=== PATIENT | female | born 1990 | race Two or more races ===

== ENCOUNTER 2019-02-16 09:06 | Emergency (ER) | payer OTHER ==
[~2019-02-16] VITALS: Ht 152.4 cm; Wt 63.7 kg
[2019-02-16] MEDS ORDERED: IBUP200C25 PO (09:13)
[2019-02-16] MEDS ORDERED: ADDE15CA3 PO (09:13)
[2019-02-16 09:57] LABS: BASO % 0.4 % (0.0-1.0); EOS # 0.1 10^3/uL (0.0-0.50); HEMATOCRIT 42.8 % (36.0-47.0); LYMPH # 1.5 10^3/uL (1.5-6.5); LYMPH % 29.6 % (24.0-44.0); MEAN CORPUSCULAR HEMOGLOBIN 30.4 pg (27.0-33.0); MEAN CORPUSCULAR VOLUME 86.8 fl (80.0-96.0); MONO # 0.3 10^3/uL (0.0-0.8); MONO % 5.5 % (0.0-5.0); NEUTROPHILS # 3.3 10^3/uL (1.8-7.7); NEUTROPHILS % 63.3 % (36.0-66.0); PLATELET COUNT, AUTOMATED 232 10^3/uL (150-450); RED BLOOD COUNT 4.93 10^6/uL (4.00-5.40); WHITE BLOOD COUNT 5.1 10^3/uL (4.0-10.0)
[2019-02-16 10:41] LABS: BLOOD UREA NITROGEN 12 MG/DL (7-18); CALCIUM LEVEL 8.6 MG/DL (8.5-10.1); CARBON DIOXIDE LEVEL 24 MEQ/L (21-32); CHLORIDE LEVEL 108 MEQ/L (98-107); CREATININE FOR GFR 0.82 MG/DL (0.55-1.30); GLOMERULAR FILTRATION RATE > 60.0 (>60); GLUCOSE, FASTING 98 MG/DL (70-100); HCG, SERUM QUANTITATIVE < 1.0 MIU/ML; POTASSIUM SERUM 4.3 MEQ/L (3.5-5.1); SODIUM LEVEL 139 MEQ/L (136-145)
[2019-02-16] MEDS ORDERED: NS 1,000 ML IV ONE (10:45)
[2019-02-16] MEDS ORDERED: KETOROLAC 30 MG/ML VIAL (J1885) IV ONE ×2 (10:45→11:00)
[2019-02-16] MEDS ORDERED: ONDANSETRON 4MG/2ML VIAL (J2405) IV ONE ×2 (10:45→11:00)
--- NOTE | 2019-02-16 11:58 | REP ---
CT ABDOMEN AND PELVIS WITHOUT CONTRAST: CT abdomen and pelvis were performed without oral or IV contrast. Sagittal and coronal reconstruction images are performed. Visualized lung bases demonstrate no infiltrate. The liver, spleen, adrenals, pancreas, and right kidney are grossly unremarkable. A punctate calcification is seen in the lower pole of the left kidney. There is no ureteral calculus bilaterally and no evidence of hydroureteronephrosis. There is no abdominal aortic aneurysm. No gross adenopathy is seen. There is no free air. No bowel wall thickening is seen. There is no evidence of appendicitis. IUD is seen in the uterus. There trace free fluid in the pelvis likely physiologic. Urinary bladder is mildly distended and grossly unremarkable. IMPRESSION: Punctate calcification in the lower pole of the left kidney. No ureteral or bladder calculus identified and no evidence of hydroureteronephrosis. No evidence of appendicitis. IUD is seen in the uterus. There is trace free fluid in the pelvis, which is likely physiologic in nature. Electronically Signed by Yohannes Downing MD 02/16/2019 11:44 P
[2019-02-16] MEDS ORDERED: KETO10TAB PO (12:00)
[2019-02-16 12:21] VITALS: BP 115/81
== END 2019-02-16 12:22 | disposition home or self-care (01) ==
LOC: M ED 09:06
DX: R10.12 Left upper quadrant pain (principal); R10.32 Left lower quadrant pain; R31.9 Hematuria, unspecified; Z97.5 Presence of (intrauterine) contraceptive device; Z87.440 Personal history of urinary (tract) infections; F17.200 Nicotine dependence, unspecified, uncomplicated; Z79.899 Other long term (current) drug therapy; Z79.1 Long term (current) use of non-steroidal anti-inflammatories (NSAID)
CPT/HCPCS: 74176; 80048; 81001; 84702; 85025; 96374; 96375; 99284; J1885; J2405

== ENCOUNTER → 2019-08-11 | Outpatient (CLI) | payer OTHER ==
[~2019-08-11] MED LIST: ADDE15CA3 PO; IBUP200C25 PO; KETO10TAB PO; PROHANCE 279.3MG/ML 15ML VIAL (A9576) As Ordered ONE
--- NOTE | 2019-08-11 13:32 | REP ---
MRI PELVIS WITHOUT AND WITH IV CONTRAST: HISTORY: Left lower quadrant pain. Status post prior and umbilical hernia repair. Area of tenderness and pain to the left and inferior of the umbilicus. Positive sonography. MRI CONTRAST DOSE: 13 mL of intravenous ProHance. MR TECHNIQUE: Axial, coronal, and sagittal T1- and T2-weighted scans are obtained with and without fat saturation. Pre- and postcontrast imaging is included. MRI FINDINGS: Cortical and medullary bone signal intensity are normal in the visualized bony pelvis and proximal femurs. There is no evidence of significant pelvic fluid. The uterus is somewhat retroflexed measuring 9.7 cm in craniocaudal span by 4.7 cm anteroposterior by 5.7 cm right to left. There is an intrauterine device in good position in the uterine endometrium. No focal uterine mass lesion is observed. Urinary bladder raymundo are smooth. The ovaries are somewhat high in the pelvis bilaterally showing normal follicles. No ovarian mass lesion is visible. No pelvic adenopathy is seen. There is some hypertrophy and low T1- low T2-signal intensity sclerosis at the symphysis pubis consistent with osteitis condensans pubis. Mild posterior spurring is seen at the symphysis. No inguinal mass or adenopathy is seen. Postcontrast images demonstrate enhancement in an intramural 2.1 cm posterior uterine fibroid just to the left of midline. No other abnormal gadolinium enhancement is appreciated with an the pelvis. IMPRESSION: 1. Mildly elongate retroverted uterus containing an IUD. Small posterior uterine leiomyoma. 2. Normal ovaries. 3. Findings consistent with osteitis condensans pubis. 4. Otherwise, unremarkable MRI study of the pelvis without and with IV contrast. Electronically Signed by Dane Tavera MD 08/11/2019 02:49 P
--- NOTE | 2019-08-11 13:37 | REP ---
MRI ABDOMEN WITHOUT AND WITH IV CONTRAST: HISTORY: Left lower quadrant pain. Patient status post prior C-sections times two and umbilical hernia repair. 1-year duration of superficial abdominal pain and tenderness lateral and inferior to the umbilicus. A 3.3 cm hypoechoic mass visible in the musculature of the abdominal wall by ultrasound. TECHNIQUE: Axial, coronal imaging planes are utilized. T1- and T2-weighted scans are obtained with and without fat saturation. Postcontrast imaging is acquired. 13 mL of intravenous ProHance is administered. MRI FINDINGS: There is subtle abnormality of the anterior abdominal wall musculature to the left of midline below the umbilicus. There is slightly heterogeneous, predominantly low T2, intermediate to low T1-signal intensity nodule along the medial border of the rectus abdominis muscle in this location. On T2-weighted scans and in-and-out of phase images, there are some T2 hyperintense cystic or vascular components along its lateral margin. Postcontrast images show heterogeneous contrast enhancement in this lesion. It is most conspicuous on contrast enhanced images and measures 3.2 cm in craniocaudal span by 1.7 cm right to left by 1.2 cm anterior to posterior. IMPRESSION: There is a heterogeneously enhancing mass in the medial aspect of the rectus abdominis muscle on the left below the level of the umbilicus. 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 Electronically Signed by Dane Tavera MD 08/11/2019 02:50 P
== END ==
LOC: M RAD 08:53
PROVIDERS: ATTEND Emergency Medicine
DX: N85.4 Malposition of uterus (principal); D25.9 Leiomyoma of uterus, unspecified; R10.32 Left lower quadrant pain; Z97.5 Presence of (intrauterine) contraceptive device
CPT/HCPCS: 72197; 74183; A9576

== ENCOUNTER → 2020-03-08 | Outpatient (REF) | payer OTHER ==
[~2020-03-08] MED LIST changes: -PROHANCE 279.3MG/ML 15ML VIAL (A9576) As Ordered ONE
[2020-04-18 11:14] LABS: CHLAMYDIA DNA AMPLIFICATION NEGATIVE (NEGATIVE); GC DNA AMPLIFICATION NEGATIVE (NEGATIVE)
== END ==
LOC: M SFHCLUC 10:27
PROVIDERS: ATTEND Physician Assistant
DX: R10.2 Pelvic and perineal pain (principal)
CPT/HCPCS: 81002; 81025; 87086; 87661; G0463

== ENCOUNTER 2020-12-07 06:05 | Observation (INO) | payer OTHER ==
[~2020-12-07] VITALS: Ht 152.4 cm; Wt 69.3 kg
[2020-12-07] VITALS (7 sets, daily range): BP systolic 109–117; BP diastolic 74–78
[~2020-12-07 06:05] MED LIST changes: +APPLTAB3 PO; +LIDO1PAD TD; +LR 1,000 ML IV ONE; +MIRE1IUD IU; +ceFAZolin SOD 1 GM in D5W MINI-BAG PLUS 50 ML IV ONE
[2020-12-07] MEDS ORDERED: BUPIVACAINE LIPOSOME/PF 1.3% 20ML VIAL (13.3MG/ML)(EXPAREL)(C9290 PER1MG) As Ordered ONE (07:09)
[2020-12-07] MEDS ORDERED: LIDOCAINE 2% 100MG/5ML SDV (FOR ANES.) As Ordered ONE (07:10)
[2020-12-07] MEDS ORDERED: BACITRACIN PWD 50,000 UNITS VIAL As Ordered ONE (07:10)
[2020-12-07] MEDS ORDERED: propofoL 200 MG/20 ML VIAL As Ordered ONE (07:10)
[2020-12-07] MEDS ORDERED: ROCURONIUM BROMIDE 50 MG/5 ML VIAL As Ordered ONE ×2 (07:10→08:22)
[2020-12-07] MEDS ORDERED: MIDAZOLAM INJ 2MG/2ML VIAL (J2250 PER 1MG) As Ordered ONE (07:10)
[2020-12-07] MEDS ORDERED: fentaNYL 250 MCG/5 ML INJECTION (J3010) As Ordered ONE (07:10)
[2020-12-07] MEDS ORDERED: HYDROmorphone HCL 2 MG/ML 1ML VIAL (J1170) As Ordered ONE (08:04)
[2020-12-07] MEDS ORDERED: dexameTHASONE 4 MG/ML 1ML VIAL (J1100 PER 1MG) As Ordered ONE (08:04)
[2020-12-07] MEDS ORDERED: ACETAMINOPHEN 1000MG 100ML IV BTL (OFIRMEV) (J0131 PER 10MG) As Ordered ONE (08:18)
[2020-12-07] MEDS ORDERED: ONDANSETRON 4MG/2ML VIAL As Ordered ONE ×2 (08:22→11:46)
[2020-12-07] MEDS ORDERED: METOCLOPRAMIDE INJ 10MG/2ML VIAL (J2765 PER 1) As Ordered ONE (08:22)
[2020-12-07] MEDS ORDERED: SUGAMMADEX SODIUM 500 MG/5 ML VIAL (BRIDION) As Ordered ONE (08:35)
[2020-12-07] MEDS ORDERED: ceFAZolin 1GM VIAL (J0690 PER 500MG) As Ordered ONE (09:18)
--- NOTE | 2020-12-07 11:34 | POST-OPPD ---
Postoperative Procedure Note Date Of Procedure: December 07, 2020 PREOPERATIVE DIAGNOSIS: Panniculitis. Rectus muscle deformity. POSTOPERATIVE DIAGNOSIS: same FINDINGS: Separation of the rectus muscle. Pannus PROCEDURE: Repair of rectus muscle defect and panniculectomy. SURGEON: Dr He FEED MILL TENDER: Dr Devine ANESTHESIA: general SPECIMENS: pannus 232g ESTIMATED BLOOD LOSS: 50 cc REPLACED: none DRAINS: 10 mm JUSTIN x 2 COMPLICATIONS: none POSTOPERATIVE CONDITION: stable MARCY HE DO December 07, 2020 11:34
--- NOTE | 2020-12-07 11:35 | ROOPDOC ---
[facility] Report Of Operation Report of Operation DATE OF PROCEDURE: 12/07/20 PREOPERATIVE DIAGNOSIS: Panniculitis. Rectus muscle deformity. POSTOPERATIVE DIAGNOSIS: same FINDINGS: Separation of the rectus muscle. Pannus PROCEDURE: Repair of rectus muscle defect and panniculectomy. SURGEON: Dr He SHUFFLE BOARD OPERATOR: Dr Devine ANESTHESIA: general SPECIMENS: pannus 232g ESTIMATED BLOOD LOSS: 50 cc REPLACED: none DRAINS: 10 mm JUSTIN x 2 COMPLICATIONS: none POSTOPERATIVE CONDITION: stable Procedure: This is a 30-year-old female who was evaluated by us for skin excess lower abdomen as well is left rectus muscle mass. Patient is scheduled for removal of left rectus muscle mass by gynecology team and repair of rectus muscle defect in panniculectomy by plastics team. Patient has excessive pannus below the umbilicus. Risks benefits and alternatives discussed with the patient in details. Informed consent confirmed and preoperative holding area. Patient was marked in upright position to include her old incision. She was brought into the operating room, placed in supine position, preoperative antibiotics given, sequential stockings placed in the lower calves, and then general anesthesia is induced. Marin catheter was introduced in the bladder without any difficulties with yellow clear urine present. She was prepped and draped in the usual sterile fashion. Lower abdominal incision was designed 6 cm above the labial crease. Incision carried out with 10 blade. Careful sharp dissection with electrocautery and peek cautery was done until the fascia of rectus muscle is identified. Significant scarring was encountered along the old Pfannenstiel incision and linea Alba. Vessels were identified throughout and either cauterized or suture ligated for hemostasis control. Fascia was completely intact. Dissection carried out until umbilical stump superiorly. Good visualization was achieved for right and left rectus muscles. At this point Dr Devine started his part of the procedure, which is dictated separately. After his part of the procedure was completed and peritoneum was repaired. I examined rectus muscle. There is a 2 cm separation, which was repaired with 2-0 Vycril sutures. Anterior rectus fascia was opened transversely, now was repaired with interrupted 2-0 Vicryl sutures and running 2-0 PDS chris suture. Exparel 10 cc was infiltrated in Rectus muscle for pain ma nagement. Patient placed on placed in the reflex position and excess tissue was measured and scored. Then it was resected using electrocautery. Total weight of the pannus 232 g. Careful hemostasis was assured. The wound is irrigated bacitracin irrigation. Skin flaps were realigned and was started all closure with deep sutures of 0 Vicryl realigning the mons pubis and closing the lower abdominal incision. 3-0 Monocryl V lock suture used for subcutaneous closure followed by 3-0 Monocryl interrupted sutures as well. Two 10 mm Srini-Bello drains were placed throughout lower abdominal incision. Prinio dressing applied to lower abdominal incision and bulky dressing throughout. Abdominal binder applied. Patient extubated in the operating room without any difficulties and transferred to recovery room in stable condition. MARCY HE DO December 07, 2020 11:35
[2020-12-07] MEDS ORDERED: fentaNYL 100 MCG/2 ML INJECTION (J3010) As Ordered ONE (11:46)
[2020-12-07] MEDS ORDERED: ACETAMINOPHEN TAB 650MG DOSE (2X325MG) PO PRN (11:50)
[2020-12-07] MEDS ORDERED: LR 1,000 ML IV SCH (11:50)
[2020-12-07] MEDS ORDERED: ONDANSETRON 4MG/2ML VIAL IV PRN (11:50)
[2020-12-07] MEDS: fentaNYL 100 MCG/2 ML INJECTION (J3010) IV PRN ×4 (11:55→12:53)
[2020-12-07] MEDS: oxyCODONE 5MG TAB PO PRN ×2 (12:44→12:58)
[2020-12-07] MEDS: ONDANSETRON 4MG/2ML VIAL IV PRN ×2 (13:45→17:50)
[2020-12-07] MEDS: LR 1,000 ML IV SCH (13:46)
[2020-12-07] MEDS: MORPHINE 4 MG/ML 1ML VIAL/SYRINGE (J2270) IV PRN ×2 (17:39→18:04)
[2020-12-07] MEDS: ceFAZolin SOD 1 GM in D5W MINI-BAG PLUS 50 ML IV SCH (17:40)
[2020-12-07] MEDS: PERCOCET 5MG/325MG TAB PO PRN (21:35)
[2020-12-08] MEDS: ceFAZolin SOD 1 GM in D5W MINI-BAG PLUS 50 ML IV SCH ×3 (00:38→16:38)
[2020-12-08 02:15] VITALS: BP 114/72
[2020-12-08] MEDS: LR 1,000 ML IV SCH (03:45)
[2020-12-08 05:30] VITALS: BP 116/73
--- NOTE | 2020-12-08 07:15 | IPNPDOC ---
Text Note Date of Service The patient was seen on 12/08/20. NOTE 12/08/20 post op day 1 reviewed surgery with patient as mass is her uterus tacked to left rectus muscle and completely adherent down to bladder. Attempted to reduce adhesions however left cornua of uterus solid into left rectus. recommended that if no pain and issue of uterine conservation then no more surgery is needed. Reviewing past history had 2 c/s and apparently second c/s was the issue. Patient has IUCD in place so at present is not an issue ,but patient wants to have more children. Will certainly need repeat cs, and be prepared for possible more surgery at that time. Presently urine clear, plans are when discharge I will order antibiotics at [facility].Reviewed leg bag with patient and nurse. Patient to arrange appointment with [facility] 10 days for Marin removal and bladder scan. If patient bypasses with urine her catheter call office Expressed understanding 20 minute discussion. As for discharge today or tomorrow is fine at discretion of attending Ijeoma MONTERROSO, I+O Ijeoma MONTERROSO I+O Vital Signs Date Time Temp Pulse Resp B/P (MAP) Pulse Ox O2 Delivery O2 Flow Rate FiO2 12/08/20 02:15 98.0 102 16 114/72 (86) 97 Room Air I&O- Last 24 Hours up to 6 AM 12/08/20 06:00 Intake Total 3995 ml Output Total 1215 ml Balance 2780 ml Chilango Devine MD December 08, 2020 07:15
[2020-12-08] MEDS: PERCOCET 5MG/325MG TAB PO PRN ×4 (08:29→23:59)
--- NOTE | 2020-12-08 13:13 | IPNPDOC ---
Subjective General Date Seen: December 08, 2020 Subject Chief Complaint/History The patient is a 30-year-old female admitted with a reason for visit of Rectus Muscle Mass, Panniculitis. Patient s/p panniculectomy with rectus muscle repair. POD 1. Doing well. Pain controlled. Current Medications Current Medications Current Medications Medications (Trade) Dose Ordered Sig/Richy Route PRN Reason Start Time Stop Time Status Last Admin Dose Admin Acetaminophen (Tylenol Tab) 650 mg Q6H PRN PO MILD PAIN (PS 1-4) 12/07/20 11:50 Cefazolin Sodium 1 gm/Dextrose 50 ml @ 100 mls/hr Q8H IV 12/07/20 16:00 12/08/20 08:29 Fentanyl Citrate (Sublimaze) 25 mcg Q5MP PRN IV PAIN LEVEL 5-10 12/07/20 11:50 12/07/20 12:50 DC 12/07/20 12:53 Lactated Ringer's 1,000 ml @ 75 mls/hr [id number] IV 12/07/20 11:50 12/08/20 03:45 Lactated Ringer's 1,000 ml @ 100 mls/hr Q10H IV 12/07/20 11:50 12/07/20 12:50 DC Morphine Sulfate (Morphine Sulfate Inj) 4 mg Q4HP PRN IV SEVERE PAIN (PS 8-10) 12/07/20 11:50 12/07/20 17:39 Ondansetron HCl (ZOFRAN INJection) 4 mg Q4H PRN IV NAUSEA OR VOMITING 12/07/20 11:50 12/07/20 17:50 Ondansetron HCl (ZOFRAN INJection) 4 mg Q4HP PRN IV NAUSEA OR VOMITING 12/07/20 11:50 12/07/20 12:50 DC 12/07/20 11:54 Oxycodone HCl (Roxicodone, Oxyir) 5 mg ASDIRECTED PRN PO PAIN LEVEL 1-4 12/07/20 11:50 12/07/20 12:50 DC 12/07/20 12:58 Oxycodone/ Acetaminophen (Percocet 5mg/ 325mg Tablet) 2 tab Q4HP PRN PO PAIN LEVEL 4-7 12/07/20 11:50 12/08/20 08:29 Allergies Coded Allergies: No Known Drug Allergies (Verified Allergy, Unknown, 11/26/20) Objective Physical Examination Examination GENERAL APPEARANCE:Patient seen, laying in bed, awake, alert, and oriented. Comfortable, in no acute distress. SKIN: Warm and moist. NECK: Supple, no thyromegaly. No obvious jugular venous distention. LUNGS: Clear to auscultation bilaterally. No wheezing appreciated. HEART: No chest wall abnormalities. Regular rate and rhythm with no murmurs appreciated. ABDOMEN: Abdomen is soft, non-tender, non-distended. Incision intact. Umbilicus viable. JUSTIN drains with serosanguinous drainage. L15, R 25 cc/24hr each drain. EXTREMITIES: No edema identified. No calf tenderness. Vital Signs Vital Signs Date Time Temp Pulse Resp B/P (MAP) Pulse Ox O2 Delivery O2 Flow Rate FiO2 12/08/20 09:00 16 12/08/20 05:30 98.3 83 116/73 (87) 98 Room Air I&Os I&O- Last 24 Hours up to 6 AM 12/08/20 05:59 Intake Total 3995 ml Output Total 1215 ml Balance 2780 ml Impression S/p panniculectomy. Doing well. Continue with Marin per PREPARATION SUPERVISOR FREEZING, can switch to leg bag today. Continue with antibiotics Ambulate. Keep abdominal binder, keep bed flexed. D/c planning tomorrow. Plan / VTE VTE Prophylaxis Ordered?: Yes MARCY HE DO December 08, 2020 13:13
[2020-12-08 14:00] VITALS: BP 103/74
[2020-12-08 22:00] VITALS: BP 109/71
[2020-12-09 06:00] VITALS: BP 109/72
[2020-12-09] MEDS: PERCOCET 5MG/325MG TAB PO PRN ×2 (06:34→12:52)
--- NOTE | 2020-12-09 07:59 | IPNPDOC ---
Subjective General Date Seen: December 09, 2020 Subject Chief Complaint/History The patient is a 30-year-old female admitted with a reason for visit of Rectus Muscle Mass, Panniculitis. Patient s/p panniculectomy POD 2. She got up today and had bilateral numbness and tingling on both legs. No dizziness, headache, SOB, CP. Able to walk. No calf tenderness. After repositioning the binder and position symptoms resolved. Feeling well during exam. Current Medications Current Medications Current Medications Medications (Trade) Dose Ordered Sig/Richy Route PRN Reason Start Time Stop Time Status Last Admin Dose Admin Acetaminophen (Tylenol Tab) 650 mg Q6H PRN PO MILD PAIN (PS 1-4) 12/07/20 11:50 Cefazolin Sodium 1 gm/Dextrose 50 ml @ 100 mls/hr Q8H IV 12/07/20 16:00 12/09/20 00:00 Fentanyl Citrate (Sublimaze) 25 mcg Q5MP PRN IV PAIN LEVEL 5-10 12/07/20 11:50 12/07/20 12:50 DC 12/07/20 12:53 Lactated Ringer's 1,000 ml @ 75 mls/hr [id number] IV 12/07/20 11:50 12/08/20 14:54 DC 12/08/20 03:45 Lactated Ringer's 1,000 ml @ 100 mls/hr Q10H IV 12/07/20 11:50 12/07/20 12:50 DC Morphine Sulfate (Morphine Sulfate Inj) 4 mg Q4HP PRN IV SEVERE PAIN (PS 8-10) 12/07/20 11:50 12/07/20 17:39 Ondansetron HCl (ZOFRAN INJection) 4 mg Q4H PRN IV NAUSEA OR VOMITING 12/07/20 11:50 12/07/20 17:50 Ondansetron HCl (ZOFRAN INJection) 4 mg Q4HP PRN IV NAUSEA OR VOMITING 12/07/20 11:50 12/07/20 12:50 DC 12/07/20 11:54 Oxycodone HCl (Roxicodone, Oxyir) 5 mg ASDIRECTED PRN PO PAIN LEVEL 1-4 12/07/20 11:50 12/07/20 12:50 DC 12/07/20 12:58 Oxycodone/ Acetaminophen (Percocet 5mg/ 325mg Tablet) 2 tab Q4HP PRN PO PAIN LEVEL 4-7 12/07/20 11:50 12/09/20 06:34 Allergies Coded Allergies: No Known Drug Allergies (Verified Allergy, Unknown, 11/26/20) Objective Physical Examination Examination GENERAL APPEARANCE:Patient seen, laying in bed, awake, alert, and oriented. Comfortable, in no acute distress. SKIN: Warm and moist. HEENT: Normocephalic, atraumatic. [place] palpebral conjunctiva, anicteric sclerae. Lips and mucosa appear moist. NECK: Supple, no thyromegaly. No obvious jugular venous distention. LUNGS: Clear to auscultation bilaterally. No wheezing appreciated. HEART: No chest wall abnormalities. Regular rate and rhythm with no murmurs appreciated. ABDOMEN: Abdomen is soft, non-tender, non-distended. Incision intact. JUSTIN drains with serosanguinous drainage. L10, R 15 cc/24hr each drain. EXTREMITIES: No edema identified. No calf tenderness. Tingling and numbness resolved. Vital Signs Vital Signs Date Time Temp Pulse Resp B/P (MAP) Pulse Ox O2 Delivery O2 Flow Rate FiO2 12/09/20 07:31 16 12/09/20 06:00 98.0 91 109/72 (84) 98 Room Air I&Os I&O- Last 24 Hours up to 6 AM 12/09/20 05:59 Intake Total 1300 ml Output Total 3300 ml Balance -2000 ml Impression S/p panniculectomy and lysis of adhesions POD 2. Continue with Marin cath on discharge per PHYSICIAN ASSISTANT SURGERY Continue with antibiotics on discharge. Continue with abdominal binder. Drain monitoring. F/up plastic surgery. Plan / VTE VTE Prophylaxis Ordered?: Yes MARCY HE DO December 09, 2020 07:59
[2020-12-09] MEDS: ceFAZolin SOD 1 GM in D5W MINI-BAG PLUS 50 ML IV SCH ×3 (09:32)
[2020-12-09] MEDS ORDERED: PERCOCET PO (13:00)
--- NOTE | 2020-12-11 21:26 | RO ---
OPERATIVE NOTE DATE OF OPERATION: 12/07/2020 PREOPERATIVE DIAGNOSIS: Pelvic mass. POSTOPERATIVE DIAGNOSIS: Uterine abdominal adhesions, bladder adhesions and inadvertent cystotomy repaired and cystoscopy performed. PROCEDURE: LAPAROTOMY EXPLETORY RELEASE OF UTERINE CORNUA ADHERENT TO LATERAL RECTUS MUSCLE, CYSTOTOMY REPAIR CYSTOTOMY CYSTOSCOPY SURGEON: Chilango Devine M.D. LEAF SIZE PICKER: DR HE FOR EXTRACTION RETRACTION AND VISUALIZATION WITHOUT WHICH PROCEDURE COULD NOT BE COMPLETED ANESTHESIA: GENERAL This lady was seen at the request of Dr. He. We had initially evaluated her for a left-sided mass in the intra-abdominal area just below the umbilicus. Various consultations had been done including oncology and it was assumed that this lady had an ovarian endometrioma and that this was a nonmalignant mass. CT scan indicated there was a mass present, did not document that it was actually ovary. DESCRIPTION OF PROCEDURE: Dr. He had the patient the supine position. Marin catheter in the bladder draining clear urine. Sequentials in place. She opened the abdomen, the skin, the fat to the fascia as another operative procedure was going to be performed after we evaluated this mass. The patient had prophylactically had preoperative antibiotics. On evaluating the fascia, we could palpate the mass 2 cm below and lateral to the umbilicus on the left side. It appeared to be mobile and this was the issue the patient was having, that it was tender. The mass seemed to extend caudad. It was definitely mobile but appeared to be fixed. We decided to open the peritoneum in order to better evaluate this mass, initially going two fingerbreadths above the symphysis pubis, carefully dissecting off the fascia and what appeared to be the peritoneum, we opened. Inadvertently, we were into the dome of the bladder. We could digitally feel the Marin bulb. Having identified the tear in the bladder, we went ahead and repaired the bladder in the usual fashion with interrupted Chromic 3-0 and then oversewed another layer with 2-0 Vicryl in order to make it watertight. At the end of the procedure, we did a cystoscopy to evaluate the ureters and the dome of the bladder. We then went as high up as we could, opening the peritoneal cavity after carefully extending up the fascia and upon opening into the peritoneal cavity, we saw bowel. However, it was not injured and it was mobilized to the side. On digital examination, we could actually feel and actually visualize the uterus which was the mass that was adherent to the underside of the left rectus muscle. It was fixed to the cornual area and part of the fundus area from previous surgery. This was the mass that the patient has been complaining about pain all along. It was a noncancerous mass. It was related to her uterus and adhesions extended both sides all the way down to where the bladder had been compressed and adherent to the fascia and the peritoneum. By digital examination, we released the adhesions on both sides where the cornua and the fundus were attached, mobilizing the uterine-isthmus junction. We did not go any further as the bladder had already been entered and we did not cause any further trauma. However, we sufficiently mobilized both sides so this patient should get some relief from that. She presently has an IUCD in place and this was not disturbed. With that said, we then carefully closed the peritoneum with 2-0 Vicryl. I left the fascia to be closed by Dr. He. We then placed in frog-leg position, removed the Marin catheter which at that time had clear urine in it. Using a 30 degree scope, we evaluated the ureters and the urethral orifices. Both were working well. We then changed to a 70 degree scope, dilated up the bladder, evaluated the dome of the bladder. There were no stitches in the bladder. The line of repair was visualized completely from one side to the other. The Marin catheter was then replaced in the bladder and was still draining clear urine. At that point, I stepped out of the operative field and we will continue with postoperative care in conjunction with Dr. He. The patient will be put on prophylactic antibiotics for 7-10 days. DO NICHO Wheeler
--- NOTE | 2020-12-12 08:06 | IPNPDOC ---
Text Note Date of Service The patient was seen on 12/09/2020 reviewed procedure with patient reviewed plan of care . Need to maintain hydration to keep urine clear . Need to continue antibiotics x 10 days medication ordered at [facility]. Generate appointment at [facility] with BEATRIS 7-10 days for catheter removal and bladder scan Maintain catheter always open to keep blader compressed. if fever notify provider if voiding around catheter notify BEATRIS. Expressed understanding , Awaiting discharge by Dr. Tate. 20 minute educational component VS,Ijeoma, I+O VSIjeoma, I+O Vital Signs Date Time Temp Pulse Resp B/P (MAP) Pulse Ox O2 Delivery O2 Flow Rate FiO2 12/09/20 13:22 18 12/09/20 06:00 98.0 91 109/72 (84) 98 Room Air Chilango Devine MD December 12, 2020 08:05
== END 2020-12-09 15:29 | disposition home or self-care (01) ==
LOC: M SDC 06:05 → M MS5PR 06:06 → M SDC 12-09 15:29
PROVIDERS: ADMIT Plastic Surgery Surgery of the Hand; ATTEND Plastic Surgery Surgery of the Hand
DX: M79.3 Panniculitis, unspecified (principal); N73.6 Female pelvic peritoneal adhesions (postinfective); K62.89 Other specified diseases of anus and rectum; M62.89 Other specified disorders of muscle; N99.71 Accidental puncture and laceration of a genitourinary system organ or structure during a genitourinary system procedure; N32.89 Other specified disorders of bladder
CPT/HCPCS: 15830; 15847; 44005; 81025; 88300; 96365; 96366; 96375; 96376; C9290; J0131; J0690; J1100; J1170; J2250; J2270; J2405; J2765; J3010

== ENCOUNTER → 2021-05-11 | Outpatient (CLI) | payer OTHER ==
[~2021-05-11] MED LIST changes: -LR 1,000 ML IV ONE; +PERCOCET PO; +PROHANCE 279.3MG/ML 15ML VIAL ONE; -ceFAZolin SOD 1 GM in D5W MINI-BAG PLUS 50 ML IV ONE
--- NOTE | 2021-05-11 13:14 | REP ---
INDICATION: SURGICAL ADHESIONS, LT ABD PAIN, LT MID ABD PAIN. COMPARISON: 08/11/2019 TECHNIQUE: Pre and post contrast 3T MRI of the abdomen was performed utilizing various sequences. Gadolinium utilized: 12 cc ProHance FINDINGS: The small heterogeneously enhancing mass seen previously in the medial aspect of the left rectus abdominus muscle below the level of the umbilicus is unchanged. The imaged portion of the liver and spleen are unchanged. The pancreas, adrenal glands, and kidneys are unchanged and again seen to be within normal limits. There is no free fluid. There is no para-aortic adenopathy. There is no intra-abdominal mass. The cortical and marrow signal seen throughout the imaged osseous structures is within normal limits and unchanged. IMPRESSION: There is an unchanged 3.2 x 1.7 x 1.2 cm sized mass in the medial aspect of the rectus abdominus muscle on the left below the level of the umbilicus. This was felt to be most consistent with a desmoid tumor or possible endometriosis implant. <Electronically signed by Nixon Lugo > 05/11/21 [id number]
--- NOTE | 2021-05-11 13:28 | REP ---
INDICATION: SURGICAL ADHESIONS, LT ABD PAIN, LT MID ABD PAIN. COMPARISON: 08/11/2019 TECHNIQUE: Pre and post contrast 3T MRI of the pelvis was performed utilizing various sequences. Gadolinium utilized: 12 cc ProHance FINDINGS: There is no significant change in appearance of the size, shape, or signal of the uterus. Note is again made of an IUD status quo. The cervical junction line is again seen to be within normal limits and unchanged. There is no evidence of a uterine or cervical mass or area of abnormal enhancement. The right ovary measures 3.3 x 2.1 x 2 cm and is within normal limits. The left ovary measures 4 x 3.5 x 2.6 cm and is within normal limits. There is no evidence of a mass or adenopathy. The cortical and marrow signal seen throughout the imaged osseous structures is within normal limits. There is a small amount of free fluid in the cul-de-sac. IMPRESSION: MRI findings are within normal limits as described above. There is an IUD in place. <Electronically signed by Nixon Lugo > 05/11/21 [id number]
== END ==
LOC: M PLAIMG 09:44
PROVIDERS: ATTEND Obstetrics & Gynecology
DX: R19.09 Other intra-abdominal and pelvic swelling, mass and lump (principal); R10.9 Unspecified abdominal pain; Z97.5 Presence of (intrauterine) contraceptive device
CPT/HCPCS: 72197; 74183; A9576

== ENCOUNTER 2023-08-14 17:56 | Emergency (ER) | payer OTHER ==
[~2023-08-14] VITALS: Ht 152.4 cm; Wt 64.5 kg
[~2023-08-14 17:56] MED LIST changes: -PROHANCE 279.3MG/ML 15ML VIAL ONE
[2023-08-14 18:21] VITALS: TEMP 98.2
[2023-08-14] MEDS ORDERED: NS 1,000 ML IV ONE (18:50)
[2023-08-14] MEDS ORDERED: ISOVUE-370 76% 100ML VIAL As Ordered ONE (18:58)
[2023-08-14 19:06] LABS: BASO % 0.1 % (0.0-1.0); EOS % 0.3 % (0.0-3.0); HEMATOCRIT 43.9 % (36.0-47.0); HEMOGLOBIN 14.9 g/dl (12.0-15.5); LYMPH % 11.6 % (24.0-44.0); MEAN CORPUSCULAR HEMOGLOBIN 29.2 pg (27.0-33.0); MEAN CORPUSCULAR HGB CONC 33.9 g/dl (32.0-36.5); MEAN CORPUSCULAR VOLUME 86.1 fl (80.0-96.0); MONO # 0.5 10^3/uL (0.0-0.8); MONO % 5.4 % (2.0-8.0); NEUTROPHILS # 7.3 10^3/uL (1.5-8.5); NEUTROPHILS % 82.5 % (36.0-66.0); PLATELET COUNT, AUTOMATED 252 10^3/uL (150-450); WHITE BLOOD COUNT 8.9 10^3/uL (4.0-10.0)
[2023-08-14] MEDS: MORPHINE 4 MG/ML 1ML VIAL IV PRN ×2 (19:25→22:11)
[2023-08-14 19:32] LABS: CK-MB VALUE MASS < 1.0 NG/ML (<3.6)
[2023-08-14 19:34] LABS: HCG, SERUM QUALITATIVE NEGATIVE (NEGATIVE)
[2023-08-14 19:35] LABS: ALKALINE PHOSPHATASE 65 U/L (46-116); ALT/SGPT 26 U/L (7.0-40); AST/SGOT 25 U/L (<34); BILIRUBIN,DIRECT 0.2 MG/DL (<0.4); BILIRUBIN,TOTAL 0.6 MG/DL (0.3-1.2); BLOOD UREA NITROGEN 15 MG/DL (9-23); CALCIUM LEVEL 8.8 MG/DL (8.5-10.1); CARBON DIOXIDE LEVEL 28 MMOL/L (20-31); CHLORIDE LEVEL 107 MMOL/L (98-107); CREATININE FOR GFR 0.84 MG/DL (0.55-1.30); GLOMERULAR FILTRATION RATE > 60.0 (>60); GLUCOSE, FASTING 94 MG/DL (60-100); POTASSIUM SERUM 3.9 MMOL/L (3.5-5.1); SODIUM LEVEL 140 MMOL/L (136-145); TOTAL PROTEIN 6.9 G/DL (5.7-8.2)
[2023-08-14 19:37] LABS: CPK CREATINE PHOSPHOKINASE 127 U/L (34-145); MB/CK RELATIVE INDEX 0.78 (< OR =4)
[2023-08-14] MEDS ORDERED: ONDANSETRON 4MG 2ML VIAL As Ordered ONE (22:07)
[2023-08-14] MEDS ORDERED: ONDANSETRON 4MG 2ML VIAL IV ONE (22:10)
[2023-08-15 00:15] VITALS: BP 110/65; O2SAT 100
== END 2023-08-15 00:15 | disposition home or self-care (01) ==
LOC: EDBD 17:56 → M ED 17:56
DX: S06.0XAA Concussion with loss of consciousness status unknown, initial encounter (principal); S40.022A Contusion of left upper arm, initial encounter; V44.9XXA Unspecified car occupant injured in collision with heavy transport vehicle or bus in traffic accident, initial encounter; Y92.9 Unspecified place or not applicable; Y93.9 Activity, unspecified; Y99.9 Unspecified external cause status; F17.200 Nicotine dependence, unspecified, uncomplicated; Z79.899 Other long term (current) drug therapy; Z79.3 Long term (current) use of hormonal contraceptives
CPT/HCPCS: 70450; 71260; 72125; 72128; 72131; 73030; 73060; 73080; 74177; 80047; 80048; 80076; 82550; 82553; 84484; 84702; 84703; 85025; 86850; 86900; 86901; 93005; 93041; 94760; 96361; 96374; 96375; 96376; 99285; J2405; Q9967

== ENCOUNTER → 2023-11-01 | Outpatient (REF) | payer OTHER | LOC: M LAB REF 16:20 | PROVIDERS: ATTEND Nurse Practitioner Family | DX: R30.0 Dysuria (principal) ==

== ENCOUNTER → 2024-04-17 | Outpatient (CLI) | payer OTHER ==
[~2024-04-17] MED LIST changes: +ISOVUE-300 61% 100ML VIAL As Ordered ONE; +LIDOCAINE 1% MDV 20ML VIAL As Ordered ONE; +PROHANCE 279.3MG/ML 5ML VIAL As Ordered ONE
== END ==
LOC: M RAD 12:47
PROVIDERS: ATTEND Physician Assistant
DX: S46.012D Strain of muscle(s) and tendon(s) of the rotator cuff of left shoulder, subsequent encounter (principal)
CPT/HCPCS: 23350; 73223; 77002; A9576; Q9967